=== PATIENT | female | born 1995 | race Caucasian/White ===

== ENCOUNTER 2022-11-07 19:21 | Emergency (ER) | payer OTHER, SELFPAY ==
--- NOTE | 2022-11-07 19:30 | ED.EYEPROB ---
HPI - Eye Problem General Chief complaint: Eye Problems Stated complaint: R EYE IRRITATION Time Seen by Provider: 11/07/22 19:30 Source: patient, family and RN notes reviewed History of Present Illness HPI Narrative: 27 yo F presents to urgent care with mom at side. Pt states she woke up this morning with a zit-like bump under her right upper eyelid. Pt states it's tender like a zit. Denies any visual disturbance, eye drainage, eye pain, or other complaints. Related Data Home Medications Medication Instructions Recorded Confirmed iron, carbonyl 45 mg tablet 45 mg PO DAILY 11/07/22 11/07/22 (Feosol) Allergies Allergy/AdvReac Type Severity Reaction Status Date / Time No Known Allergies Allergy Verified 11/07/22 19:33 Review of Systems Review of Systems: CONSTITUTIONAL: Denies fever, chills, or sweats. EYES: Denies visual changes, redness, or discharge. a tender bump under right eyelid ENT: Denies otalgia and sore throat CARDIOVASCULAR: Denies chest pain, palpitations, or edema. RESPIRATORY: Denies cough or dyspnea. GASTROINTESTINAL: Denies abdominal pain, nausea, vomiting, or diarrhea. GENITOURINARY: Denies dysuria or hematuria. SKIN: Denies rash or itching. MUSCULOSKELETAL: Denies back pain, joint pain, or myalgia. NEUROLOGIC: Denies headache, numbness, or weakness. Pertinent positives per HPI. PMFSH Comments At the time of my signature, I reviewed and agree with the nursing past medical, surgical, social, and family history. There is no relevant family history pertinent to the patient complaint. Exam Narrative: GENERAL: This is a well-nourished, well-developed patient, in no apparent distress. HEAD: normocephalic, atraumatic. EYES: Sclera clear/white. Vision is grossly intact. Small pustule to right, upper, inner eyelid. EARS: External ears normal, auditory canals clear and without drainage. Hearing grossly intact. NOSE: External nose normal with no obvious nasal discharge, nares without redness, no rhinorrhea. THROAT: Mucous membranes moist, posterior pharynx clear. NECK: Neck supple, non-tender without lymphadenopathy, masses or thyromegaly. CARDIOVASCULAR: Regular rate RESPIRATORY: no respiratory distress SKIN: warm, intact with no suspicious lesions or rash, good texture and turgor. NEURO: awake, alert, and oriented to person, place and time. There were no obvious focal neurologic abnormalities. Course Course Level of Care: Express Care Visit Vital Signs Vital signs: Reviewed MDM - Eye Problem MDM Narrative Medical decision making narrative: May apply warm compresses to right upper eyelid. If you don't see improvement, you may start using the antibiotic ointment as directed. Go to the ER with any new or worsening symptoms. Differential Diagnosis Differential diagnosis: Likely conjunctivitis, periorbital cellulitis and other ( stye) Critical Care Time Critical Care Time Critical Care Time: No Discharge Plan Discharge Clinical Impression: Hordeolum Qualifiers: Hordeolum type: internum Laterality: right Eyelid: upper Qualified Code(s): H00.021 - Hordeolum internum right upper eyelid Patient Disposition: Home, Self-Care Condition: Stable Instructions: Antibiotic Form, Armani (ED) Additional Instructions: May apply warm compresses to right upper eyelid. If you don't see improvement, you may start using the antibiotic ointment as directed. Go to the ER with any new or worsening symptoms. Prescriptions: New erythromycin 5 mg/gram (0.5 %) ointment 1 applic RIGHT EYE DAILY 7 Days Qty: 3.5 0RF No Action iron, carbonyl [Feosol] 45 mg Tablet 45 mg PO DAILY Follow-up/Referrals: Hortencia,MD Renae [Primary Care Provider] - Time of Disposition: 19:43
[2022-11-07 19:32] VITALS: BP 122/74; PULSE 67; RESP 16; TEMP 36.4; O2SAT 100
== END 2022-11-07 19:47 | disposition home or self-care (01) ==
PROVIDERS: Emergency Provider Nurse Practitioner Family; PCP Family Medicine
DX: H00.021 Hordeolum internum right upper eyelid (principal)
CPT/HCPCS: 99213; G0463